=== PATIENT | female | born 1975 | race Caucasian/White ===

== ENCOUNTER 2017-03-17 15:29 | Emergency (ER) | payer OTHER | END 2017-03-17 16:33 | disposition home or self-care (01) | LOC: FER 15:29 | DX: J01.90 Acute sinusitis, unspecified (principal); F17.210 Nicotine dependence, cigarettes, uncomplicated; Z98.51 Tubal ligation status; Z88.0 Allergy status to penicillin | CPT/HCPCS: 99283 ==

== ENCOUNTER 2021-06-27 10:52 | Emergency (ER) | payer OTHER ==
[~2021-06-27 10:52] MED LIST: AZITHROMYCIN250 MG PO; BROMFED DM COU473 ML PO; CEFDINIR300 MG PO; HYCODAN5 ML PO; IBUPROFEN800 MG PO; MEDROL 4MG DOSEP4 MG PO; NAPROXEN500 MG PO; NORCO 5-325 TA1 EACH PO; PERCOCET 5-3251 EACH PO; PREDNISONE 10MG10 MG PO; TESSALON PERLE100 MG PO; VENTOLIN HFA IN18 GM INH; VOLTAREN **OUT75 MG PO; ZPAK PO
[2021-06-27 12:58] LABS: BASOPHIL 0.7 % (0-2); EOSINOPHIL 1.5 % (0-5); HCT 44.9 % (37.0-47.0); HGB 13.6 g/dl (12.5-16.0); LYMPHOCYTE 24.4 % (15-48); MCH 26.9 pg (25.0-31.0); MCHC 30.3 g/dL (32.0-36.0); MCV 88.7 fL (78.0-100.0); MONOCYTE 5.5 % (0-12); MPV 10.4 fL (6.0-9.5); NEUTROPHIL 67.5 % (41-80); NRBC 0; PLT 314 K/uL (150-400); RBC 5.06 M/uL (4.20-5.40); RDW 13.5 % (11.5-14.0); WBC 10.6 K/uL (4.0-10.5)
[2021-06-27 13:14] LABS: ALBUMIN 3.7 g/dL (3.4-5.0); BILIRUBIN - TOTAL 0.3 mg/dL (0.2-1.0); BUN/CREAT RATIO (CALC) 19.2 RATIO; CREATININE 0.73 mg/dL (0.51-0.95); GLOBULIN (CALCULATION) 4.4 g/dL; POTASSIUM 3.8 mmol/L (3.5-5.1); TOTAL PROTEIN 8.1 g/dL (6.4-8.2)
[2021-06-27 13:21] LABS: LACTIC ACID 1.4 mmol/L (0.4-1.9)
[2021-06-27 14:57] LABS: BILIRUBIN NEGATIVE (NEGATIVE); BLOOD 1+ Ery/uL (NEGATIVE); CLARITY CLEAR (CLEAR); COLOR YELLOW (YELLOW); GLUCOSE (U) NORMAL (NORMAL); LEUKOCYTES NEGATIVE Leu/uL (NEGATIVE); NITRITE NEGATIVE (NEGATIVE); PROTEIN NEGATIVE (NEGATIVE); UROBILINOGEN 0.2 mg/dL (0.2-1.0); pH 5.5 (5.0-9.0)
[2021-06-27 15:06] LABS: URINARY RBC RARE
== END 2021-06-27 15:53 | disposition home or self-care (01) ==
LOC: FER 10:52
PROVIDERS: Nurse Practitioner Family
DX: K21.9 Gastro-esophageal reflux disease without esophagitis (principal); Z87.19 Personal history of other diseases of the digestive system; Z88.0 Allergy status to penicillin; Z87.891 Personal history of nicotine dependence
CPT/HCPCS: 36415; 80053; 81001; 82270; 83605; 85025; J7030; Q9967

== ENCOUNTER 2021-11-11 22:14 | Emergency (ER) | payer OTHER ==
[2021-11-11 23:22] LABS: BASOPHIL 0.5 % (0-2); EOSINOPHIL 0.5 % (0-5); HCT 43.1 % (37.0-47.0); HGB 13.3 g/dl (12.5-16.0); LYMPHOCYTE 22.6 % (15-48); MCH 25.8 pg (25.0-31.0); MCHC 30.9 g/dL (32.0-36.0); MCV 83.7 fL (78.0-100.0); MONOCYTE 15.2 % (0-12); MPV 10.1 fL (6.0-9.5); NRBC 0; PLT 270 K/uL (150-400); RBC 5.15 M/uL (4.20-5.40); RDW 13.9 % (11.5-14.0); WBC 6.2 K/uL (4.0-10.5)
[2021-11-11 23:41] LABS: ALBUMIN 3.5 g/dL (3.4-5.0); BILIRUBIN - TOTAL 0.2 mg/dL (0.2-1.0); BUN/CREAT RATIO (CALC) 14.6 RATIO; C-REACTIVE PROTEIN 0.8 mg/dL (<=0.90); CREATININE 0.89 mg/dL (0.51-0.95); GLOBULIN (CALCULATION) 4.1 g/dL; POTASSIUM 3.9 mmol/L (3.5-5.1); TOTAL PROTEIN 7.6 g/dL (6.4-8.2)
[2021-11-11 23:57] LABS: INFLUENZA A NAA NEGATIVE (NEGATIVE)
[2021-11-11 23:58] LABS: CORONAVIRUS 2019 SARS-COV-2 POSITIVE (NEGATIVE)
[2021-11-12] MEDS ORDERED: VENTOLIN HFA IN18 GM INH (02:02)
[2021-11-12] MEDS ORDERED: BROMFED DM COU473 ML PO (02:02)
[2021-11-12] MEDS ORDERED: IBUPROFEN800 MG PO (02:02)
[2021-11-12] MEDS ORDERED: PULMICORT FLE180 MCG INH (02:02)
== END 2021-11-12 02:35 | disposition home or self-care (01) ==
LOC: FER 22:14
PROVIDERS: Emergency Medicine
DX: U07.1 COVID-19 (principal); E66.9 Obesity, unspecified; F17.200 Nicotine dependence, unspecified, uncomplicated; Z88.0 Allergy status to penicillin
CPT/HCPCS: 36415; 36600; 71045; 80053; 82803; 84484; 85025; 85379; 86140; 93005; 94640; 94664; J1885; J2930; U0002

== ENCOUNTER 2022-06-09 12:46 | Emergency (ER) | payer OTHER ==
[~2022-06-09 12:46] MED LIST changes: +PULMICORT FLE180 MCG INH
== END 2022-06-09 14:19 | disposition left against medical advice (07) ==
LOC: FER 12:46
DX: M54.50 Low back pain, unspecified (principal); Z53.21 Procedure and treatment not carried out due to patient leaving prior to being seen by health care provider; Z88.0 Allergy status to penicillin